=== PATIENT | female | born 2000 | race Caucasian/White ===

== ENCOUNTER → 2022-03-10 | Outpatient (CLI) | payer BC | END | disposition home or self-care (01) | LOC: LABWHC1 14:02 | PROVIDERS: ATTEND Obstetrics & Gynecology Obstetrics | DX: O20.0 Threatened abortion (principal) | CPT/HCPCS: 36415; 84144; 84702; 86850; 86900; 86901 ==

== ENCOUNTER → 2022-03-12 | Outpatient (CLI) | payer BC | END | disposition home or self-care (01) | LOC: LABWHC1 14:35 | PROVIDERS: ATTEND Obstetrics & Gynecology Obstetrics | DX: O20.0 Threatened abortion (principal); Z3A.00 Weeks of gestation of pregnancy not specified | CPT/HCPCS: 36415; 84702 ==

== ENCOUNTER 2022-07-09 09:09 | Outpatient (CLI) | payer BC ==
[2022-07-09 10:27] VITALS: BP 111/72; PULSE 96; RESP 16; TEMP 98.8
--- NOTE | 2022-07-10 10:05 | P.MSEPDOC ---
Presenting Problems - Arrival Data Date of Arrival on Unit: 07/09/22 Time of Arrival on Unit: 09:09 Mode of Transport: Ambulatory - Complaint OB-Reason for Admission/Chief Complaint: Other Comment: fell on side walk Medical History - Information : 1 Para: 0 Term: 0 : 0 Abortions: Spontaneous or Elective: 0 Number of Living Children: 0 - Gestational Age Gestational Age by MILADYS (wks/days): 21 Weeks and 4 Days - History Comment: spotting at 7 weeks, [id number] Review of Systems - Review of Systems Constitutional: No problems Breast: No problems ENT: No problems Cardiovascular: No problems Respiratory: No problems Gastrointestinal: No problems Genitourinary: No problems Musculoskeletal: No problems Neurological: No problems Skin: No problems Vital Signs - Temperature Temperature: 98.8 F Temperature Source: Temporal Artery Scan - Pulse Right Radial Pulse Rate: 96 Pulse Assessment Method: Automatic Cuff - Respirations Respiratory Rate: 16 Oxygen Delivery Method: Room Air O2 Sat by Pulse Oximetry: 100 - Blood Pressure Right Arm Blood Pressure: 111/72 Blood Pressure Mean: 85 Blood Pressure Source: Automatic Cuff Medical Screen Scoring - Uterine Contractions Intensity: Absent - Assessment - Baby A Baseline FHR: 150 Physician Notification - Physician Notified Physician Notified Date: 07/09/22 Physician Notified Time: 10:00 Physician: BROOKE Steinberg Order Received: Yes (october discharge home with instructions) Maternal Triage Index - Scheduled/Requesting Priority 5 Scheduled/Requesting Priority 5: Yes Criteria Met for Priority 5: sent from office. fell on sidewalk on ice. landed on rt side, hit abd but" braced by rt arm and knee. sore from fall. no bruising , no lacerations. feeling baby move. no bleeding or leaking fluid vaginally. Disposition - Disposition OB Disposition: Triage, Discharge to home, Written follow up instructions reviewed Discharge Date: 07/09/22 Discharge Time: 10:15 I agree with the RN Medical Screening Exam: No Physician's MSE Comment: Pt instructed to return to triage with any severe abdominal or pelvic pain, vaginal bleeding or leakage of fluids, decreased movement. Case reviewed; plan agreed upon as documented in EMR&OBIX.: Yes Diagnosis: maternal fall in 2nd trimester
== END 2022-07-09 10:15 | disposition home or self-care (01) ==
LOC: FBPOP 09:09
PROVIDERS: ATTEND Obstetrics & Gynecology
DX: O9A.212 Injury, poisoning and certain other consequences of external causes complicating pregnancy, second trimester (principal); Z3A.21 21 weeks gestation of pregnancy; Z88.2 Allergy status to sulfonamides
CPT/HCPCS: 99213

== ENCOUNTER 2022-11-12 15:39 | Outpatient (CLI) | payer BC ==
[2022-11-12 17:07] VITALS: BP 121/70; PULSE 95; RESP 14; TEMP 98.1
--- NOTE | 2022-12-16 19:07 | P.MSEPDOC ---
Presenting Problems - Arrival Data Date of Arrival on Unit: 11/12/22 Time of Arrival on Unit: 15:30 Mode of Transport: Ambulatory - Complaint OB-Reason for Admission/Chief Complaint: Decreased Movement Medical History - Information : 1 Para: 0 Term: 0 : 0 Abortions: Spontaneous or Elective: 0 Number of Living Children: 0 - Gestational Age Gestational Age by MILADYS (wks/days): 39 Weeks and 4 Days Review of Systems - Review of Systems Constitutional: No problems Breast: No problems ENT: No problems Cardiovascular: No problems Respiratory: No problems Gastrointestinal: No problems Genitourinary: No problems Musculoskeletal: No problems Neurological: No problems Skin: No problems Vital Signs - Temperature Temperature: 98.1 F Temperature Source: Temporal Artery Scan - Pulse Right Brachial Pulse Rate: 95 Pulse Assessment Method: Automatic Cuff - Respirations Respiratory Rate: 14 Oxygen Delivery Method: Room Air - Blood Pressure Right Arm Blood Pressure: 121/70 Blood Pressure Mean: 87 Blood Pressure Source: Automatic Cuff Medical Screen Scoring - Uterine Contractions Frequency From (mins): 2 Frequency To (mins): 4 Duration From (seconds): 30 Duration To (seconds): 50 Intensity: Mild Resting: Soft to palpation - Assessment - Baby A Baseline FHR: 125 Heart Rate - NICHD Category: Category I (Normal) NST: Reactive Physician Notification - Physician Notified Physician Notified Date: 11/12/22 Physician Notified Time: 16:24 Physician: Mery Trejo New Order Received: Yes - Notification Comment Comment: d/c home Maternal Triage Index - Maternal Triage Index Presenting for scheduled procedure w/no complaint: No - Stat/Priority 1 Stat Priority 1: No - Urgent/Priority 2 Urgent Priority 2: Yes Provider Notified: Mery Trejo Provider Notified Time: 16:24 Criteria Met for Priority 2: c/o decreased movement Disposition - Disposition OB Disposition: Discharge to home Discharge Date: 11/12/22 Discharge Time: 17:00 I agree with the RN Medical Screening Exam: Yes Case reviewed; plan agreed upon as documented in EMR&OBIX.: Yes Diagnosis: DECREASED MOVEMENTS, THIRD TRIMESTER, UNSP
== END 2022-11-12 17:00 | disposition home or self-care (01) ==
LOC: FBPOP 15:39
PROVIDERS: ATTEND Obstetrics & Gynecology Obstetrics
DX: O36.8131 Decreased fetal movements, third trimester, fetus 1 (principal); Z3A.39 39 weeks gestation of pregnancy; Z88.2 Allergy status to sulfonamides
CPT/HCPCS: 59025; 99213

== ENCOUNTER 2022-11-17 15:55 | Inpatient (IN) | payer BC, OTHER ==
[2022-11-17] MEDS ORDERED: DINOPROSTONE 10 MG INSERT.ER VAGINAL ONE (16:30)
[2022-11-17 18:54] LABS: HCT 25.8 % (34.0-46.0); Hypochromasia Marked; MCH 22.1 pg (25.0-35.0); MCV 71.2 fL (80.0-100.0); Mean Platelet Volume 11.7; Microcytosis Moderate; Platelet Count 182 k/uL (150-450); Poikilocytosis Slight; RBC 3.62 m/uL (3.80-5.40); RDW 15.8 % (11.5-15.5); WBC 8.5 k/uL (3.8-10.6)
[2022-11-17 20:36] LABS: Large Platelets Present; Lymphocytes # (M) 1.53 k/uL (1.0-4.8); Monocytes # (M) 0.68 k/uL (0-1.0); Neutrophils # (M) 6.29 k/uL (1.3-7.7); Neutrophils % (M) 74 %; Nucleated Red Blood Cells 0 /100 WBC (0-0); Total Cells Counted 100
[2022-11-17] MEDS: BUTORPHANOL 2 MG/ML 1 ML VIAL IV PRN (23:07)
[2022-11-17] MEDS ORDERED: CARBOPROST TROMETHAMINE 250 MCG/ML 1 ML AMP IM PRN (23:43)
[2022-11-17] MEDS ORDERED: OXYTOCIN 10 UNIT/ML 1 ML VIAL IM PRN (23:43)
[2022-11-17] MEDS ORDERED: METHYLERGONOVINE 0.2 MG/ML 1 ML AMP IM PRN (23:43)
[2022-11-17] MEDS ORDERED: miSOPROStoL 200 MCG TAB PO PRN (23:43)
[2022-11-17] MEDS ORDERED: TERBUTALINE 1 MG/ML VIAL SQ PRN (23:43)
[2022-11-17] MEDS ORDERED: TRANEXAMIC ACID IN NACL,ISO-OS 1,000 MG in EMPTY BAG 1 BAG IV PRN (23:43)
[2022-11-17] MEDS ORDERED: LIDOCAINE 0.5% (PF) 5 MG/ML (50 ML SDV) SQ PRN (23:43)
[2022-11-18] MEDS: BUTORPHANOL 2 MG/ML 1 ML VIAL IV PRN ×2 (02:04→04:33)
[2022-11-18] MEDS: LACTATED RINGERS 1,000 ML IV SCH ×4 (05:38→22:19)
[2022-11-18] MEDS ORDERED: fentaNYL (PF) 50 MCG/ML 5 ML AMP ONE (05:57)
[2022-11-18] MEDS ORDERED: SODIUM CHLORIDE 0.9% 100 ML BAG ONE (05:57)
[2022-11-18] MEDS ORDERED: ROPIVACAINE 5 MG/ML 20 ML AMPULE ONE (05:57)
[2022-11-18] MEDS ORDERED: OXYTOCIN 30 UNITS/500 ML NS 30 UNIT in SALINE 1 500ML.BAG IV SCH ×2 (06:00→11:30)
[2022-11-18] MEDS ORDERED: BENZOCAINE/MENTHOL SPRAY 1 GM/SPRAY AEROSOL TOPICAL PRN (11:29)
[2022-11-18] MEDS ORDERED: diphenhydrAMINE 25 MG CAP PO PRN (11:29)
[2022-11-18] MEDS ORDERED: diphenhydrAMINE 50 MG/ML 1 ML VIAL IVP PRN ×2 (11:29)
[2022-11-18] MEDS ORDERED: diphenhydrAMINE 50 MG CAP PO PRN (11:29)
[2022-11-18] MEDS ORDERED: ACETAMINOPHEN TAB 325 MG TAB PO PRN (11:29)
[2022-11-18] MEDS ORDERED: LANOLIN CREAM 5 GM TUBE TOPICAL PRN (11:29)
[2022-11-18] MEDS ORDERED: SIMETHICONE 80 MG CHEWABLE PO PRN (11:29)
[2022-11-18] MEDS ORDERED: HYDROCORTISONE 2.5% RECTAL CREAM 30 GM TUBE RECTAL PRN (11:29)
[2022-11-18] MEDS ORDERED: ZOLPIDEM 5 MG TAB PO PRN (11:29)
--- NOTE | 2022-11-18 11:33 | P.HPOB ---
History of Present Illness H&P Date: 11/17/22 Chief Complaint: IUP at 40-2/7 weeks 22-year-old 1 para 0 at 40-2/7 weeks that presents to labor and delivery for induction of labor secondary to postdates. Patient is receiving routine care which has been essentially uncomplicated. Patient notes good feta l movement denies contractions vaginal bleeding or loss of fluid. US done at the office yesterday with EFW 8-5, nml ELIZABETH On bloodwork patient a positive, rubella status immune, B surface anti gen negative, HIV negative, RPR is nonreactive, group beta strep cultures negative. Review of Systems Constitutional: Denies chills, Denies fatigue, Denies fever Ears, nose, mouth and throat: Denies headache Cardiovascular: Denies leg edema Respiratory: Denies dyspnea Gastrointestinal: Denies constipation, Denies diarrhea, Denies nausea, Denies vomiting Genitourinary: Reports Past Medical History Past Medical History: Asthma History of Any Multi-Drug Resistant Organisms: None Reported Additional Past Surgical History / Comment(s): 2018 left ureter reimplantation Past Anesthesia/Blood Transfusion Reactions: Motion Sickness, Postoperative Nausea & Vomiting (PONV) Past Psychological History: No Psychological Hx Reported Smoking Status: Never smoker Past Alcohol Use History: None Reported Past Drug Use History: None Reported - Past Family History Mother Family Medical History: Thyroid Disorder Medications and Allergies Home Medications Medication Instructions Recorded Confirmed Type Vit No.179/Iron/Folic 1 tab PO DAILY 07/09/22 11/17/22 History [ Tablet] Omeprazole Magnesium [PriLOSEC OTC] 1 cap PO DAILY 11/12/22 11/17/22 History Allergies Allergy/AdvReac Type Severity Reaction Status Date / Time Sulfa (Sulfonamide Allergy Mild Rash/Hives Verified 11/17/22 16:12 Antibiotics) Exam Osteopathic Statement: *. No significant issues noted on an osteopathic structural exam other than those noted in the History and Physical/Consult. 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 Results Result Diagrams: 11/17/22 18:38 Assessment and Plan (1) Post-dates Current Visit: Yes Status: Acute Code(s): O48.0 - POST-TERM SNOMED Code(s): 05970144 Plan: 22-year-old 1 para 0 at 40 and 4 sense weeks presents for induction of labor secondary to postdates. Cervidil induction is begun this evening. Plan Cervidil removal around 5 AM, followed by augmentation with Pitocin.
--- NOTE | 2022-11-18 11:33 | P.PROBDLV ---
Vaginal Delivery Note - . Vaginal Delivery Note: Findings: Viable male infant delivered at 1111, weight of 7 lbs. 5 oz., Apgars of 9 and 9 at one and 5 minutes respectively. This is a 22-year-old 1 para 0 that was admitted last evening for Cervidil induction of labor secondary to postdates. Patient is 40-3/7 weeks. Patient was admitted Cervidil was placed without difficulty. Patient became uncomfortable through the night and did request an epidural after cervical change was noted. Patient had spontaneous rupture of membranes around 650 clear in nature. Patient made good progress toward complete. Once patient was noted to be completely dilated she was placed in the modified lithotomy position and with excellent maternal effort brought the baby down to a presentation. Patient subsequently had delivery of the head in occiput anterior presentation with a right compound hand, anterior/posterior shoulder and body were delivered spontaneous cry was noted at . After two-minute delay the umbilical cord was doubly clamped and cut. The placenta was delivered spontaneously intact with a three-vessel cord being noted. Uterus then noted to be firm and below the umbilicus. On inspection the patient's vaginal vault a left labial laceration was appreciated. This laceration was instilled with lidocaine and repaired in the usual fashion with 4-0 chromic. Hemostasis was appreciated after repair. All counts are correct 2 at the delivery. Patient and tolerated delivery well and are resting comfortably.
[2022-11-18] MEDS: IBUPROFEN 600 MG TAB PO SCH ×3 (13:41→23:24)
[2022-11-18] MEDS: FERROUS SULFATE 325 MG TAB PO SCH (18:29)
[2022-11-18] MEDS: SENNOSIDES-DOCUSATE SODIUM 1 EACH TAB PO SCH (19:48)
[2022-11-19] MEDS: IBUPROFEN 600 MG TAB PO SCH ×2 (04:24→12:20)
[2022-11-19 06:59] LABS: Anisocytosis Slight; Basophils % (A) 0 %; Eosinophils % (A) 0 %; Hypochromasia Marked; Lymphocytes # (A) 1.2 k/uL (1.0-4.8); Lymphocytes % (A) 9 %; MCH 22.2 pg (25.0-35.0); MCHC 30.5 g/dL (31.0-37.0); MCV 72.7 fL (80.0-100.0); Mean Platelet Volume 11.9; Microcytosis Moderate; Monocytes # (A) 0.7 k/uL (0-1.0); Monocytes % (A) 5 %; Neutrophils # (A) 11.6 k/uL (1.3-7.7); Neutrophils % (A) 85 %; Platelet Count 141 k/uL (150-450); Poikilocytosis Slight; RBC 3.02 m/uL (3.80-5.40); RDW 16.2 % (11.5-15.5); WBC 13.6 k/uL (3.8-10.6)
[2022-11-19 07:03] LABS: HGB 6.7 gm/dL (11.4-16.0)
[2022-11-19] MEDS: FERROUS SULFATE 325 MG TAB PO SCH (08:14)
[2022-11-19] MEDS: SENNOSIDES-DOCUSATE SODIUM 1 EACH TAB PO SCH (08:14)
[2022-11-19] MEDS ORDERED: PRENATAL VIT-IRON-FOLIC ACID 1 EACH TABLET PO SCH (09:00)
[2022-11-19 09:01] VITALS: BP 113/71; PULSE 83; RESP 17; TEMP 97.9
--- NOTE | 2022-11-19 09:46 | P.DS ---
Providers Date of admission: 11/17/22 15:55 Expected date of discharge: 11/19/22 Attending physician: Mery Trejo Primary care physician: Stated None - Discharge Diagnosis(es) (1) Post-dates Current Visit: Yes Status: Acute (2) Status post vaginal delivery Current Visit: Yes Status: Acute (3) Obstetric labial laceration, delivered, current hospitalization Current Visit: Yes Status: Acute Hospital Course: this is a 22-year-old 1 now para 1 that was admitted on 524 for Cervidil induction of labor secondary to postdates. Patient was 40-3/7 weeks at the time. Patient was admitted and Cervidil was placed without difficulty. Patient did become uncomfortable with Cervidil in place cervical change was noted Cervidil was removed and epidural was ordered per patient request. Epidural was placed by the anesthesia without difficulty. Patient underwent spontaneous rupture of membranes around 6:50 AM on 525. Patient made good progress were complete began pushing and had a normal spontaneous vaginal delivery of a viable female at 1111, weight of 7 lbs. 5 oz., Apgars of 9 and 9 at one and 5 minutes respectively. Patient did sustain a first-degree labial laceration during delivery. The cervix repaired in the usual fashion without difficulty. On this day #1 she is feeling well. She is ambulating voiding without difficulty. She is tolerating a regular diet without nausea or vomiting. She states her pain is well-controlled. She would like discharge home later today. Patient Condition at Discharge: Good Plan - Discharge Summary New Discharge Prescriptions: No Action Omeprazole Magnesium [PriLOSEC OTC] 1 cap PO DAILY Vit No.179/Iron/Folic [ Tablet] 1 tab PO DAILY Discharge Medication List Vit No.179/Iron/Folic [ Tablet] 1 tab PO DAILY 07/09/22 [History] Omeprazole Magnesium [PriLOSEC OTC] 1 cap PO DAILY 11/12/22 [History] Follow up Appointment(s)/Referral(s): Mery Trejo DO [Doctor of Osteopathic Medicine] - 4 Weeks Patient Instructions/Handouts: Vaginal Delivery (GEN), Vaginal Delivery (DC) Activity/Diet/Wound Care/Special Instructions: no tub baths or intercourse until 6 weeks . Patient is counseled on planning precautions. Patient can expect moderate to heavy period like bleeding . Patient is to call the office and schedule a routine visit for 4 weeks. Should she have any concerns prior to this visit she is urged to call the office. Discharge Disposition: HOME SELF-CARE
== END 2022-11-19 12:30 | disposition home or self-care (01) | DRG 807 ==
LOC: 4FBP 15:55
PROVIDERS: ADMIT Obstetrics & Gynecology Obstetrics; ATTEND Obstetrics & Gynecology Obstetrics
PROC: 10E0XZZ Delivery of Products of Conception, External Approach (ICD-10-PCS; principal; 2022-11-18)
PROC: 3E0P7VZ Introduction of Hormone into Female Reproductive, Via Natural or Artificial Opening (ICD-10-PCS; 2022-11-18)
PROC: 0HQ9XZZ Repair Perineum Skin, External Approach (ICD-10-PCS; 2022-11-18)
PROC: 3E0R3BZ Introduction of Anesthetic Agent into Spinal Canal, Percutaneous Approach (ICD-10-PCS; 2022-11-18)
DX: O48.0 Post-term pregnancy (principal); Z37.0 Single live birth; O70.0 First degree perineal laceration during delivery; Z3A.40 40 weeks gestation of pregnancy; Z28.311 Partially vaccinated for COVID-19; Z88.2 Allergy status to sulfonamides; Z79.899 Other long term (current) drug therapy
CPT/HCPCS: 85025; 86850; 86900; 86901